=== PATIENT | female | born 1960 | race African-American/Black ===

== ENCOUNTER 2020-05-03 09:41 | Day surgery (SDC) | payer OTHER ==
[2020-04-29 12:27] LABS: HEMATOCRIT 36.3 % (36.0-47.0); HEMOGLOBIN 12.4 g/dL (12.0-15.5); MEAN CORPUSCULAR HEMOGLOBIN 31.7 pg (27.0-33.4); MEAN CORPUSCULAR HGB CONC 34.3 g/dL (32.0-36.0); MEAN CORPUSCULAR VOLUME 92 fl (80-97); PLATELET COUNT 226 10^3/uL (150-450); RED BLOOD COUNT 3.93 10^6/uL (3.72-5.28); RED CELL DISTRIBUTION WIDTH 13.6 % (11.5-14.0); WHITE BLOOD COUNT 5.8 10^3/uL (4.0-10.5)
[2020-04-29 12:31] LABS: APPEARANCE,URINE SLIGHTLY-CLOUDY; BILIRUBIN,URINE NEGATIVE (NEGATIVE); COLOR,URINE YELLOW; GLUCOSE, URINE NEGATIVE (NEGATIVE); KETONES,URINE NEGATIVE (NEGATIVE); LEUKOCYTE ESTERASE,URINE TRACE (NEGATIVE); NITRITE,URINE NEGATIVE (NEGATIVE); PROTEIN,URINE NEGATIVE (NEGATIVE); URINE SPECIFIC GRAVITY 1.024; UROBILINOGEN,URINE NEGATIVE mg/dL (<2.0)
[~2020-05-03 09:41] MED LIST: LACTATED RINGERS 1000 ML IV PRN; LIDOCAINE 0.5% INJ-PF (5 MG/ML) 50 ML SDV SUBCUT PRN
[2020-05-03] MEDS ORDERED: FENTANYL CITRATE INJ/PF 100 MCG/2 ML AMPUL ONE ×2 (11:47→11:55)
[2020-05-03] MEDS ORDERED: MIDAZOLAM 2 MG/2 ML INJ ONE (11:47)
[2020-05-03] MEDS ORDERED: PROPOFOL INJ 200 MG/20 ML VIAL IV ONE ×2 (11:47→11:55)
[2020-05-03] MEDS ORDERED: MEPERIDINE HCL/PF INJ 25 MG/1 ML DISP.SYRIN IV PRN (11:56)
[2020-05-03] MEDS ORDERED: FENTANYL CITRATE INJ/PF 100 MCG/2 ML AMPUL IV PRN ×2 (11:56)
[2020-05-03] MEDS ORDERED: PROMETHAZINE HCL INJ 25 MG/1 ML VIAL IV PRN ×2 (11:56)
[2020-05-03] MEDS ORDERED: MORPHINE SULFATE 10 MG/ML INJ IV PRN (11:56)
[2020-05-03] MEDS ORDERED: DIPHENHYDRAMINE HCL 50 MG/ML VIAL IV PRN (11:56)
[2020-05-03] MEDS ORDERED: IBUPROFEN 800 MG TABLET PO PRN (12:34)
[2020-05-03] MEDS ORDERED: KETOROLAC TROMETHAMINE INJ/PF 30 MG/1 ML SDV IV PRN (12:34)
[2020-05-03] MEDS ORDERED: OXYCODONE-ACETAMINOPHEN 5-325 MG TABLET PO PRN ×2 (12:34)
[2020-05-03] MEDS ORDERED: RINGERS SOLUTION,LACTATED 1,000 ML IV PRN (12:34)
--- NOTE | 2020-05-03 12:36 | Operative Report ---
Operative Report DATE OF SURGERY: 05/03/20 PREOPERATIVE DIAGNOSIS: Postmenopausal bleeding POSTOPERATIVE DIAGNOSIS: Same OPERATION: D&C hysteroscopy SURGEON: KIRILL ROSE ANESTHESIA: LMAC TISSUE REMOVED OR ALTERED: Endocervical and uterine contents COMPLICATIONS: None ESTIMATED BLOOD LOSS: 20 cc INTRAOPERATIVE FINDINGS: Benign-appearing uterine polyps PROCEDURE: Patient was taken the OR and placed in supine position. General anesthesia was induced. She is placed in dorsolithotomy position using Sreedhar stirrups. Her perineum and vagina were prepared and draped sterile fashion. Her bladder was drained with a red rubber catheter. Speculum was placed in the vagina and the anterior lip cervix grasped with a tenaculum. Uterus was sounded to 10 cm before and after the case. Cervix was gently dilated. Endocervical curettings were obtained. Hysteroscopy was performed and showed a bleeding uterine cavity with benign-appearing polyps present. Sharp curettage was then performed removing the polyps. Polyp forceps were also used. At the end of the case all instruments were removed. She is placed back in supine position taken recovery room stable condition.
--- NOTE | 2020-05-03 12:39 | Discharge Summary ---
Discharge Summary (SDC) - Discharge Final Diagnosis: Postmenopausal bleeding Date of Surgery: 05/03/20 Discharge Date: 05/03/20 Condition: Good Referrals: NOE KRISHNAMURTHY MD [Primary Care Provider] - Discharge Diet: Regular Discharge Activity: Slowly Increase Activity Report the Following to Your Physician Immediately: Fever over 101 Degrees
[2020-05-03 14:29] VITALS: BP 141/88
== END 2020-05-03 14:20 | disposition home or self-care (01) ==
LOC: OROUT 09:41
PROVIDERS: ATTEND Obstetrics & Gynecology
DX: N95.0 Postmenopausal bleeding (principal); E78.5 Hyperlipidemia, unspecified; I10 Essential (primary) hypertension; Z86.73 Personal history of transient ischemic attack (TIA), and cerebral infarction without residual deficits; Z79.899 Other long term (current) drug therapy; F17.210 Nicotine dependence, cigarettes, uncomplicated; N84.0 Polyp of corpus uteri; E66.9 Obesity, unspecified; Z03.818 Encounter for observation for suspected exposure to other biological agents ruled out
CPT/HCPCS: 36415; 85027; 87635; 81001; 88305 ×2; 58558; J2250; J3010; J2704; C9803; 952